=== PATIENT | male | born 1990 | race African-American/Black ===

== ENCOUNTER → 2024-05-09 | Outpatient (CLI) | payer OTHER ==
--- NOTE | 2024-05-09 16:49 | HMCIMG ---
MR SPINAL CANAL, LUMBAR WO CON HISTORY: No additional history given. COMPARISON: None TECHNIQUE: MRI of the lumbar spine was performed utilizing multiple pulse sequences in axial , coronal and sagittal plane. Patient was not given contrast through intravenous route. FINDINGS: Endplate degenerative changes with disc space narrowing are seen at the L4-5 level. No loss of vertebral height is seen. There is straightening of normal lumbar curvature which may be related to muscle spasm or positioning. Degenerative disc signals are present at L4-5 levels. Visualized distal conus is unremarkable. At the L4-5 level, there is annular disc bulge with disc protrusion/herniation causing anterior thecal sac compression with bilateral lateral recess stenosis and bilateral neural foraminal stenosis. The thecal sac measures approximately 9.3 mm in its anterior posterior dimension. IMPRESSION: 1. 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
== END | disposition home or self-care (01) ==
LOC: EEVIPCON 13:30 → RAH 13:36
PROVIDERS: ATTEND Family Medicine
DX: M47.26 Other spondylosis with radiculopathy, lumbar region (principal); M48.061 Spinal stenosis, lumbar region without neurogenic claudication; M51.16 Intervertebral disc disorders with radiculopathy, lumbar region
CPT/HCPCS: 72148